=== PATIENT | male | born 1950 | race Caucasian/White ===

== ENCOUNTER → 2017-03-25 | Outpatient (CLI) | payer OTHER ==
[~2017-03-25] VITALS: Ht 177.8 cm; Wt 101.0 kg
[~2017-03-25] MED LIST: ADVAIR 100/501 DISK IH; ALBUTEROL SULF8.5 GM IH; ATORVASTATIN CA20 MG PO; BACTRIM,SEPT1 TABLET PO; CELEXA20 MG PO; CINNAMON500 MG PO; CITALOPRAM HBR20 M1 PO; CLOBETASOL PROP60 GM TP; DIGOXIN250 MCG PO; DOCUSATE SODIU100 MG PO; ENDOCET 5-3251 EACH PO; FLEXERIL10 MG PO; GRAVIOLA PO; LIDODERM 5% P1 PATCH TD; LIPITOR10 MG PO; LIPITOR20 MG PO; LISINOPRIL-HCT1 EAC3 PO; LOPRESSOR25 MG PO; LORTAB 5-325 M1 EACH PO; METFORMIN HCL500 MG PO; MONTELUKAST SOD10 MG PO; MOTRIN600 MG PO; MUCINEX600 MG PO; OCUVITE TABLET1 EACH PO; OSTEO BI-FLEX1 EAC1 PO; PREDNISONE10 MG PO; SINGULAIR10 MG PO; SPIRIVA RESPIMAT4 GM IH; SPIRIVA1 INHALATI IH; SYMBICORT60 INHALA1 IH; SYMBICORT60 INHALAT IH; TAMSULOSIN HCL0.4 MG PO; TRAMADOL HCL50 MG PO; TRILIPIX135 MG PO; VENTOLIN HFA18 GM IH; VICODIN,LORT1 TABLET PO; ZANTAC150 MG PO; ZETIA10 MG PO; ZOFRAN ODT8 MG PO
[2017-03-25 10:02] LABS: HEMATOCRIT 39.4 % (38.0-50.0); MCH 30.1 PG (29.0-34.0); MCHC 33.5 G/DL (30.0-36.0); MCV 89.7 FL (86-99); MEAN PLAT.VOLUME 8.9 uM^3 (9.0-12.4); PLATELET COUNT 240 K/uL (156-360); RBC DIS.WIDTH-CV 12.9 % (11.8-14.6); RBC DIS.WIDTH-SD 42.1 % (39-53); RED BLOOD COUNT 4.39 M/uL (4.00-5.50); WHITE BLOOD COUNT 5.2 K/uL (4.1-10.2)
[2017-03-25 10:12] LABS: INTER. NORMALIZED RATIO 0.9; PROTHROMBIN TIME 9.5 (9.2-11.2); PTT 29.7 (25-32)
== END | disposition home or self-care (01) ==
LOC: OPR 08:32 → EDSTATUS 09:00 → OPR 09:00
PROVIDERS: Thoracic Surgery (Cardiothoracic Vascular Surgery)
DX: C34.90 Malignant neoplasm of unspecified part of unspecified bronchus or lung (principal); J44.9 Chronic obstructive pulmonary disease, unspecified; E78.00 Pure hypercholesterolemia, unspecified; G47.30 Sleep apnea, unspecified; I10 Essential (primary) hypertension; Z82.49 Family history of ischemic heart disease and other diseases of the circulatory system; Z87.891 Personal history of nicotine dependence; Z79.84 Long term (current) use of oral hypoglycemic drugs
CPT/HCPCS: 71010; 77012; 85027; 85610; 85730; 88305; J3010